=== PATIENT | male | born 1975 | race Caucasian/White ===

== ENCOUNTER → 2020-09-14 10:32 | Outpatient (BNVA) | payer OTHER, SELFPAY | PROVIDERS: PCP Internal Medicine; Visit Provider Hospitalist | DX: R07.2 Precordial pain (principal); J45.40 Moderate persistent asthma, uncomplicated; G47.33 Obstructive sleep apnea (adult) (pediatric); R05 Cough; Z99.89 Dependence on other enabling machines and devices; Z79.899 Other long term (current) drug therapy | CPT/HCPCS: 99212 ==

== ENCOUNTER 2020-09-15 11:44 | Outpatient (REF) | payer OTHER, SELFPAY ==
--- NOTE | ~2020-09-15 | XR_ITS ---
EXAMINATION: XR CHEST CLINICAL INFORMATION: Chest pain. COMPARISON: None TECHNIQUE: 2 views of the chest were obtained. FINDINGS: No significant abnormality is noted involving the heart, lungs, mediastinum, bony thorax or soft tissues. XR/XR chest 2V IMPRESSION: Unremarkable examination.
--- NOTE | 2020-09-15 12:09 | ECG_ITS ---
Test Reason : CP Blood Pressure : / mmHG Vent. Rate : 071 BPM Atrial Rate : 071 BPM P-R Int : 182 ms QRS Dur : 110 ms QT Int : 384 ms P-R-T Axes : 016 -36 -02 degrees QTc Int : 417 ms Normal sinus rhythm Left axis deviation Borderline ECG No previous ECGs available Referred By: Stanton Centeno Electronically Signed By:MARINA HALL
== END 2020-09-15 11:45 | disposition home or self-care (01) ==
LOC: HO.XRAY 11:44
PROVIDERS: PCP Internal Medicine; Visit Provider Hospitalist
DX: R07.9 Chest pain, unspecified (principal)
CPT/HCPCS: 71046; 93005

== ENCOUNTER → 2020-11-16 10:37 | Outpatient (BNVA) | payer OTHER, SELFPAY | PROVIDERS: PCP Internal Medicine; Visit Provider Hospitalist | DX: J45.40 Moderate persistent asthma, uncomplicated (principal); R05 Cough; G47.33 Obstructive sleep apnea (adult) (pediatric); Z99.89 Dependence on other enabling machines and devices | CPT/HCPCS: 99212 ==

== ENCOUNTER → 2021-10-08 10:48 | Outpatient (BNVA) | payer OTHER, SELFPAY | PROVIDERS: PCP Internal Medicine; Visit Provider Hospitalist | DX: J45.40 Moderate persistent asthma, uncomplicated (principal); G47.33 Obstructive sleep apnea (adult) (pediatric); R05.9 Cough, unspecified; Z99.89 Dependence on other enabling machines and devices | CPT/HCPCS: 99212 ==

== ENCOUNTER → 2022-11-14 10:28 | Outpatient (BNVA) | payer OTHER, SELFPAY | PROVIDERS: PCP Internal Medicine; Visit Provider Hospitalist | DX: R05.9 Cough, unspecified (principal); J45.40 Moderate persistent asthma, uncomplicated; K21.9 Gastro-esophageal reflux disease without esophagitis; G47.33 Obstructive sleep apnea (adult) (pediatric); R40.0 Somnolence; R06.83 Snoring; F41.9 Anxiety disorder, unspecified | CPT/HCPCS: 99212 ==